=== PATIENT | female | born 1990 | race Caucasian/White ===

== ENCOUNTER 2017-09-13 10:18 | Outpatient (CLI) | payer OTHER | END 2017-09-13 10:19 | disposition home or self-care (01) | LOC: CTENTCT 10:18 | PROVIDERS: ATTEND Otolaryngology Plastic Surgery within the Head & Neck | DX: J32.9 Chronic sinusitis, unspecified (principal) | CPT/HCPCS: 70486 ==

== ENCOUNTER 2017-09-22 07:31 | Day surgery (SDC) | payer OTHER ==
[2017-09-21 14:03] VITALS: BMI 21.5
[2017-09-22] MEDS ORDERED: Midazolam HCl 2 mg/2 ml Vial ONE ×2 (08:43→10:45)
[2017-09-22 08:44] LABS: Hematocrit 43.4 % (36.0-47.0)
[2017-09-22] MEDS ORDERED: Fentanyl 100 MCG/2 ML VIAL ONE (08:56)
[2017-09-22] MEDS ORDERED: Lidocaine 1% w/Epinephrine 1:200K 30 ML VIAL ONE (08:58)
[2017-09-22] MEDS ORDERED: Oxymetazoline HCl 0.05% ( 15 ML ) ONE ×2 (08:58→09:18)
[2017-09-22] MEDS ORDERED: Meperidine HCl/PF 25 MG/ML VIAL ONE (10:18)
[2017-09-22] MEDS ORDERED: Promethazine HCl 25 MG/ML VIAL IM/IV PRN (10:37)
[2017-09-22] MEDS ORDERED: Non-Formulary Medication 1 EACH PO PRN (10:37)
[2017-09-22] MEDS ORDERED: Meperidine HCl/PF 25 MG/ML VIAL SLOW IVP PRN (10:37)
[2017-09-22] MEDS ORDERED: Ondansetron HCl/PF 4 MG/2 ML Vial IVP PRN (10:37)
[2017-09-22] MEDS ORDERED: Hydrocodone-Acetamin 15 ML UDCUP ONE (11:37)
[2017-09-22] MEDS ORDERED: Promethazine HCl 25 MG/ML VIAL ONE (11:44)
[2017-09-22] MEDS ORDERED: Ibuprofen 100 MG/5 ML UDCUP ONE (13:46)
[2017-09-22] MEDS ORDERED: Ketorolac Tromethamine 30 MG/ML VIAL ONE (16:07)
[2017-09-22] MEDS ORDERED: Dexamethasone 20 MG/5 ML VIAL ONE (16:07)
[2017-09-22] MEDS ORDERED: Ondansetron HCl/PF 4 MG/2 ML Vial ONE (16:07)
[2017-09-22] MEDS ORDERED: Lidocaine 1% PF 5 ML VIAL ONE (16:07)
[2017-09-22] MEDS ORDERED: Propofol 200 MG/20 ML VIAL ONE (16:07)
--- NOTE | 2017-09-23 14:03 | OP ---
PREOPERATIVE DIAGNOSES: 1. Chronic rhinosinusitis. 2. Bilateral inferior turbinate hypertrophy. 3. Nasal obstruction. 4. Chronic adenotonsillitis. 5. Adenotonsillar hypertrophy. POSTOPERATIVE DIAGNOSES: 1. Chronic rhinosinusitis. 2. Bilateral inferior turbinate hypertrophy. 3. Nasal obstruction. 4. Chronic adenotonsillitis. 5. Adenotonsillar hypertrophy. PROCEDURES: 1. Bilateral endoscopic sinus surgery, total ethmoidectomies. 2. Bilateral endoscopic sinus surgery, maxillary antrostomies. 3. Bilateral inferior turbinate submucosal resection. 4. Tonsillectomy and adenoidectomy. SURGEON: Deyvi Bustos M.D. ESTIMATED BLOOD LOSS: 50 mL COMPLICATIONS: None. ANESTHESIA: GETA. PROCEDURE IN DETAIL: After consent was obtained, the patient was identified, brought to the operatin g room, and placed on the operating table in the supine position. General endotracheal anesthesia an d intravenous access was obtained and we proceeded with positioning the patient for oropharyngeal guido eliane. Oropharyngeal exposure was obtained with a Yovany-Brian mouth gag after a head drape was placed and secured with a towel clip. The Yovany-Brian mouth gag was then suspended from the Martin tray and palatal elevation was achieved with a red rubber catheter. The right tonsil was addressed first. We used a curved Allis to grasp the tonsil and retract it medially as an anterior pillar incision was m florencio. The retrotonsillar fascial plane was then established and blunt dissection was performed with t he suction cautery. Blood vessels were anticipated, identified, and cauterized as they were encounte red. Ultimately, dissection was carried to the posterior tonsillar pillar mucosa which was incised h emostatically, as well as the base of tongue connection. The tonsil was then passed off as a specimen and bleeding points within the tonsillar bed were cauterized under direct visualization. We subsequ ently turned our attention to the contralateral side, where using a similar technique, a near identic al procedure was performed. Again, the tonsil was grasped and retracted medially with a curved Allis . The retrotonsillar fascial plane was established and while the anterior pillar was retracted media lly, the hemostatic blunt dissection of the tonsil with a suction cautery was performed with blood ve ssels anticipated, identified, and cauterized as they were encountered. Again, dissection continued to the base of tongue and posterior tonsillar pillar mucosa which was incised in a hemostatic fashion . The tonsillar beds were then carefully inspected and bleeding points were identified and cauterize d with a suction cautery. After this portion of the procedure, hemostasis was completely obtained. Under direct mirror visualization, we visualized the adenoid pad. Under direct mirror visualization, we removed the bulk of the adenoid tissue with the adenoid curette. We then packed the nasopharynx for an appropriate period of time with Rc-Synephrine saturated tonsillar sponges. After a period of observation, we removed the pack. Under indirect mirror visualization, we obtained hemostasis and v aporization of residual adenoid tissue with electrocautery. The patient's oral cavity was copiously irrigated with iced saline and subsequently suctioned. After completion of the procedure, the nasal cavity and oropharynx were irrigated and suctioned as were the gastric contents. The patient was the n awakened and transferred to the recovery room where the patient remained in stable condition prior to discharge to Day Stay. Following this, the patient was placed in the beach chair position and 1% lidocaine with 1:100,000 epinephrine was injected into the inferior turbinates and middle turbinates and lateral nasal wall bilaterally. Following this, the middle turbinates were gently medialized wit h a [place] elevator. The uncinate process was identified and was anteriorly fractured using a ball en ded probe. Following this, the uncinate process was removed bilaterally using the microdebrider and the upbiting Blakesley forceps. Following this, the natural maxillary ostia were identified with the ball-ended probe and were then gently widened using the straight Blakesley forceps and the microdebr ider. Following this, the ethmoidal bulla was identified and was punctured into the posterior ethmoi reina cells. The ethmoidal bulla was then used under microdebrider. Following this, the ground lamell a was identified and was punctured into the posterior ethmoidal cells. Working from posterior to ant erior, the ethmoidal cells were opened in a mucosal-sparing technique. Following this, the nasal cav ity was irrigated. MeroPacks were placed within the middle meatus. The patient tolerated the proced ure well. We then punctured on their anterior and inferior aspect with the submucosal microdebrider and submucosal resection was performed of the anterior and inferior portions of the inferior turbinat es bilaterally. The patient tolerated the procedure well.
== END 2017-09-22 13:50 | disposition home or self-care (01) ==
LOC: SDC 07:31
PROVIDERS: ATTEND Otolaryngology Plastic Surgery within the Head & Neck
PROC: 099R8ZZ Drainage of Left Maxillary Sinus, Via Natural or Artificial Opening Endoscopic (ICD-10-PCS; principal; 2017-09-22)
PROC: 09TU8ZZ Resection of Right Ethmoid Sinus, Via Natural or Artificial Opening Endoscopic (ICD-10-PCS; principal; 2017-09-22)
PROC: 09BL8ZZ Excision of Nasal Turbinate, Via Natural or Artificial Opening Endoscopic (ICD-10-PCS; principal; 2017-09-22)
PROC: 09TV8ZZ Resection of Left Ethmoid Sinus, Via Natural or Artificial Opening Endoscopic (ICD-10-PCS; principal; 2017-09-22)
PROC: 099Q8ZZ Drainage of Right Maxillary Sinus, Via Natural or Artificial Opening Endoscopic (ICD-10-PCS; principal; 2017-09-22)
PROC: 0CTPXZZ Resection of Tonsils, External Approach (ICD-10-PCS; principal; 2017-09-22)
PROC: 0CTQ0ZZ Resection of Adenoids, Open Approach (ICD-10-PCS; principal; 2017-09-22)
DX: J32.9 Chronic sinusitis, unspecified (principal); J34.3 Hypertrophy of nasal turbinates; J35.3 Hypertrophy of tonsils with hypertrophy of adenoids; A42.89 Other forms of actinomycosis; G43.909 Migraine, unspecified, not intractable, without status migrainosus; F41.9 Anxiety disorder, unspecified; F32.9 Major depressive disorder, single episode, unspecified; Z88.1 Allergy status to other antibiotic agents; Z88.0 Allergy status to penicillin; Z91.013 Allergy to seafood; Z88.8 Allergy status to other drugs, medicaments and biological substances
CPT/HCPCS: 84703; 85014; 88304; 96374; J1100; J1885; J2001; J2175; J2250; J2405; J2550; J2704; J3010

== ENCOUNTER 2018-01-12 10:39 | Outpatient (CLI) | payer MEDICAID ==
--- NOTE | 2018-01-12 13:48 | ULT ---
COMPLETE ABDOMEN ULTRASOUND: INDICATIONS: Mid epigastric abdominal pain. FINDINGS: The partially visualized abdominal aorta is within normal limits. The distal portion is obscured by overlying bowel gas. The visualized liver and spleen are unremarkable. The spleen measures 9.5 cm. A small amount of sludge is present within the gallbladder. No sonographic Bray sign is reported. The common bile duct measures 2.6 mm. The visualized aspects of the pancreas are unremarkable. The right kidney measures 10.2 x 3.2 x 4.4 cm. The left kidney measures 11.6 x 5 x 4.9 cm. There is a 5.6 cm calcification seen at the corticomedullary junction, suspicious for a small stone. IMPRESSION: 1. Gallbladder sludge. 2. Left nephrolithiasis. POS: RICKIE
== END 2018-01-12 10:40 | disposition home or self-care (01) ==
LOC: ULT 10:39
PROVIDERS: ATTEND Family Medicine
DX: R10.13 Epigastric pain (principal); K82.8 Other specified diseases of gallbladder; N20.0 Calculus of kidney
CPT/HCPCS: 76700

== ENCOUNTER 2018-11-21 09:29 | Outpatient (CLI) | payer OTHER ==
--- NOTE | 2018-11-21 10:15 | ULT ---
RIGHT BREAST ULTRASOUND: Date: 11/21/18 HISTORY: Palpable mass in lower outer aspect of the right breast. Bilateral breast pain. TECHNIQUE: Multiplanar Vieira scale and color Doppler images were obtained in a targeted ultrasound of the right breast. FINDINGS: Normal appearing breast parenchyma is seen in the right breast. No suspicious mass or shadowing is se en. No cyst is identified. IMPRESSION: BIRADS Category 1 - negative. Annual screening mammography is recommended at the age of 40. POS: DIOGO
== END 2018-11-21 09:30 | disposition home or self-care (01) ==
LOC: BICULT 09:29
PROVIDERS: ATTEND Physician Assistant
DX: N63.10 Unspecified lump in the right breast, unspecified quadrant (principal)

== ENCOUNTER 2018-12-05 08:49 | Outpatient (CLI) | payer OTHER ==
--- NOTE | 2018-12-05 11:04 | ULT ---
ULTRASOUND PELVIS WITH DOPPLER: HISTORY: Abnormal bleeding. COMPARISON: None. FINDINGS: Real-time, gamez scale, color Doppler, and spectral analysis of the pelvis was performed. The uterus measures 9.8 x 5.9 x 4.1 cm. Endometrial thickness is 7 mm. The right kidney measures 3. 3 x 3.6 x 2.7 cm with a 2 cm cyst with adequate vascular flow. The left ovary measures 3.9 x 3 x 2.7 cm with adequate vascular flow. No free fluid in the pelvis. Intrauterine device is seen within the endometrial cavity. IMPRESSION: Intrauterine device seen within the endometrial cavity. Normal exam. POS: TPC
== END 2018-12-05 08:50 | disposition home or self-care (01) ==
LOC: BICULT 08:49
PROVIDERS: ATTEND Student in an Organized Health Care Education/Training Program
DX: N93.9 Abnormal uterine and vaginal bleeding, unspecified (principal); Z97.5 Presence of (intrauterine) contraceptive device
CPT/HCPCS: 76856; 93976

== ENCOUNTER 2019-05-04 12:39 | Outpatient (CLI) | payer OTHER ==
--- NOTE | 2019-05-04 13:41 | RAD ---
XR Elbow Rt 2 View HISTORY: Right elbow pain, recent fall COMPARISON: 04/28/2019 FINDINGS: No fracture or dislocation is identified.
== END 2019-05-04 12:40 | disposition home or self-care (01) ==
LOC: RAD 12:39
PROVIDERS: ATTEND Physician Assistant
DX: M25.521 Pain in right elbow (principal)

== ENCOUNTER 2019-08-06 14:51 | Emergency (ER) | payer OTHER ==
--- NOTE | 2019-08-06 15:56 | RAD ---
Radiograph pelvis one view: DATE: 08/06/2019 HISTORY: 29-year-old female with posterior nontraumatic pelvic pain. FINDINGS: Mild sclerosis without large osteophytes of bilateral SI joints. Bilateral hip joint spaces are maint ained. No subcapital or acetabular osteophytes. Femoral head contours are maintained. Pelvic ring is intact. No displaced fracture identified. There is an IUD at midline. IMPRESSION: 1. Intrauterine device. 2. No definitive major pathology identified.
[2019-08-06 15:59] LABS: #Eosinphils 0.1 thou/uL (0.0-0.7); #Lymphocytes 0.9 thou/uL (1.20-3.40); #Monocytes 0.4 thou/uL (0.11-0.59); #Neutrophils 6.1 thou/uL (1.40-6.50); %Basophils 0.5 % (0.0-1.0); %Eosinophils 1.6 % (0.0-10.0); %Lymphocytes 11.3 % (21.0-51.0); %Monocytes 4.8 % (0.0-10.0); %Neutrophils 81.7 % (42.0-75.0); Hemoglobin 12.8 g/dL (12.0-16.0); Mean Corpuscular HGB CONC 32.5 g/dL (32.0-36.0); Mean Corpuscular Hemoglobin 29.6 pg (27.0-31.0); Mean Corpuscular Volume 91.1 fL (78.0-98.0); Mean Platelet Volume 8.5 fL (7.4-10.4); Platelet Count 164 thou/uL (130-400); RBC Distribution Width 11.9 % (11.5-14.5); Red Blood Cell (RBC) Count 4.32 mill/uL (4.20-5.40); White Blood Cell (WBC) Count 7.5 thou/uL (4.8-10.8)
[2019-08-06] MEDS ORDERED: HYDROcodone/Acetaminophen 5/325 mg Tablet ONE (16:01)
== END 2019-08-06 17:40 | disposition home or self-care (01) ==
LOC: SCSER 14:51
DX: M53.3 Sacrococcygeal disorders, not elsewhere classified (principal); G89.29 Other chronic pain; F41.9 Anxiety disorder, unspecified; F32.9 Major depressive disorder, single episode, unspecified; Z79.899 Other long term (current) drug therapy
CPT/HCPCS: 36415; 72170; 85025; 85652

== ENCOUNTER 2020-01-01 08:16 | Outpatient (CLI) | payer OTHER ==
--- NOTE | 2020-01-01 09:15 | MRI ---
MRI lumbar spine noncontrast HISTORY: Low back pain with left leg radiculopathy. FINDINGS: The conus medullaris has normal appearance. Vertebral body heights and alignment are mainta ined. Disc hydration is within normal limits. At each level, the central canal and neural foramina are patent. Mild osteophytosis and facet fluid a t each level of the lumbar spine. At the L5-S1 level, a very small focus of increased T2 signal within the posterior disc annulus on th e sagittal images has the appearance of an annular fissure. IMPRESSION: Minimal degenerative changes. Tiny posterior annular fissure at the L5-S1 disc. No focal disc herniation or nerve root compression.
== END 2020-01-01 08:17 | disposition home or self-care (01) ==
LOC: BICMRI 08:16
PROVIDERS: ATTEND Specialist
DX: M51.17 Intervertebral disc disorders with radiculopathy, lumbosacral region (principal); M53.3 Sacrococcygeal disorders, not elsewhere classified; M47.26 Other spondylosis with radiculopathy, lumbar region; Z98.1 Arthrodesis status
CPT/HCPCS: 72148

== ENCOUNTER 2020-12-25 08:38 | Emergency (ER) | payer OTHER ==
[2020-12-25 09:59] LABS: #Basophils 0.1 thou/uL (0.0-0.2); #Eosinphils 0.5 thou/uL (0.0-0.7); #Lymphocytes 1.2 thou/uL (1.20-3.40); #Monocytes 0.3 thou/uL (0.11-0.59); #Neutrophils 1.6 thou/uL (1.40-6.50); %Basophils 1.6 % (0.0-1.0); %Eosinophils 12.6 % (0.0-10.0); %Lymphocytes 33.2 % (21.0-51.0); %Monocytes 8.7 % (0.0-10.0); Hemoglobin 12.7 g/dL (12.0-16.0); Mean Corpuscular Hemoglobin 31.3 pg (27.0-31.0); Mean Corpuscular Volume 92.2 fL (78.0-98.0); Mean Platelet Volume 8.3 fL (7.4-10.4); Platelet Count 176 thou/uL (130-400); RBC Distribution Width 11.2 % (11.5-14.5); Red Blood Cell (RBC) Count 4.05 mill/uL (4.20-5.40); White Blood Cell (WBC) Count 3.7 thou/uL (4.8-10.8)
[2020-12-25 10:03] LABS: BHCG - Serum Negative (NEGATIVE); Pregs Control Background? CLEAR/WHITE (CLR/WHITE); Pregs Control Bar Appear? YES (CONTROL BAR)
[2020-12-25] MEDS ORDERED: Ondansetron ODT 4 MG TAB ONE (10:06)
[2020-12-25] MEDS ORDERED: Lidocaine Viscous Sol 2% 15 ml UD Cup ONE (10:06)
[2020-12-25] MEDS ORDERED: Mag-Al 1200 mg/1200 mg/30 ML UDCUP ONE (10:06)
[2020-12-25 10:16] LABS: ALT (SGPT) 9 U/L (8-55); AST (SGOT) 13 U/L (5-34); Albumin 4.4 g/dL (3.5-5.0); Alkaline Phosphatase 49 U/L (40-110); Anion Gap 15 mmol/L (10-20); BUN (Urea Nitrogen) 16 mg/dL (7.0-18.7); Bilirubin, Total 1.6 mg/dL (0.2-1.2); Calc. Creatinine Clearance 0 mL/min (70-130); Calcium 8.8 mg/dL (7.8-10.44); Carbon Dioxide 25 mmol/L (22-29); Chloride 102 mmol/L (98-107); Globulin 2.9 g/dL (2.4-3.5); Glucose 86 mg/dL (70-105); Lipase 41 U/L (8-78); Potassium 3.5 mmol/L (3.5-5.1); Protein, Total 7.3 g/dL (6.0-8.3); Sodium 138 mmol/L (136-145)
[2020-12-25 10:27] LABS: Bilirubin Negative (Negative); Blood, Urine Negative (Negative); Clarity Clear (Clear); Glucose, Urine (Dipstick) Normal (Negative); Ketone, Urine 20 mg/dL (Negative); Leukocyte 75 Leu/uL (Negative); Nitrite Negative (Negative); Protein, Urine (Dipstick) 100 mg/dL (Neg-Trace); RBC/HPF 0-3 HPF (0-3); Specific Gravity, Urine 1.022 (1.002-1.036); Squamous Epithelial 0-3 HPF (0-3); Urobilinogen Normal mg/dL (Less than 2); WBC/HPF 0-3 HPF (0-3); pH, Urine 8.5 (5.0-9.0)
[2020-12-25 10:33] LABS: Bacteria/HPF 1+ HPF (None Seen)
== END 2020-12-25 12:40 | disposition home or self-care (01) ==
LOC: ERS 08:38
DX: R10.13 Epigastric pain (principal)
CPT/HCPCS: 36415; 80053; 81003; 81015; 83690; 84703; 85025; 96372; 99284; J0500; Q0162

== ENCOUNTER 2020-12-26 10:46 | Inpatient (IN) | payer OTHER ==
[2020-12-26 11:28] LABS: Bilirubin Negative (Negative); Blood, Urine Negative (Negative); Clarity Clear (Clear); Glucose, Urine (Dipstick) Normal (Negative); Ketone, Urine 40 mg/dL (Negative); Leukocyte 250 Leu/uL (Negative); Nitrite Negative (Negative); Protein, Urine (Dipstick) 30 mg/dL (Neg-Trace); RBC/HPF 0-3 HPF (0-3); Specific Gravity, Urine 1.029 (1.002-1.036); Urobilinogen Normal mg/dL (Less than 2)
[2020-12-26 11:30] LABS: Bacteria/HPF 1+ HPF (None Seen)
[2020-12-26] MEDS ORDERED: Pantoprazole 40 MG VIAL ONE (11:34)
[2020-12-26] MEDS ORDERED: Morphine 4 MG/ML VIAL ONE ×2 (11:34→14:25)
[2020-12-26] MEDS ORDERED: Ondansetron PF 4 MG/2 ML Vial ONE (11:34)
[2020-12-26 11:40] LABS: #Eosinphils 0.4 thou/uL (0.0-0.7); #Lymphocytes 1.6 thou/uL (1.20-3.40); #Monocytes 0.3 thou/uL (0.11-0.59); #Neutrophils 1.6 thou/uL (1.40-6.50); %Basophils 0.8 % (0.0-1.0); %Eosinophils 9.4 % (0.0-10.0); %Lymphocytes 41.8 % (21.0-51.0); %Monocytes 6.9 % (0.0-10.0); %Neutrophils 41.1 % (42.0-75.0); Mean Corpuscular HGB CONC 33.8 g/dL (32.0-36.0); Mean Corpuscular Hemoglobin 31.2 pg (27.0-31.0); Mean Corpuscular Volume 92.2 fL (78.0-98.0); Mean Platelet Volume 8.5 fL (7.4-10.4); Platelet Count 203 thou/uL (130-400); RBC Distribution Width 11.2 % (11.5-14.5); Red Blood Cell (RBC) Count 4.16 mill/uL (4.20-5.40); White Blood Cell (WBC) Count 3.9 thou/uL (4.8-10.8)
[2020-12-26 11:48] LABS: BHCG - Serum Negative (NEGATIVE); Pregs Control Background? CLEAR/WHITE (CLR/WHITE); Pregs Control Bar Appear? YES (CONTROL BAR)
[2020-12-26 12:15] LABS: ALT (SGPT) 8 U/L (8-55); AST (SGOT) 19 U/L (5-34); Albumin 4.6 g/dL (3.5-5.0); Alkaline Phosphatase 48 U/L (40-110); Anion Gap 14 mmol/L (10-20); BUN (Urea Nitrogen) 14 mg/dL (7.0-18.7); Bilirubin, Total 1.3 mg/dL (0.2-1.2); Calc. Creatinine Clearance 0 mL/min (70-130); Calcium 9.2 mg/dL (7.8-10.44); Carbon Dioxide 25 mmol/L (22-29); Chloride 103 mmol/L (98-107); Globulin 3.4 g/dL (2.4-3.5); Glucose 95 mg/dL (70-105); Lipase 38 U/L (8-78); Sodium 138 mmol/L (136-145)
[2020-12-26] MEDS ORDERED: Acetaminophen 650 MG Suppository PR PRN (14:10)
[2020-12-26] MEDS ORDERED: Ondansetron ODT 4 MG TAB PO PRN (14:10)
[2020-12-26] MEDS ORDERED: Ondansetron PF 4 MG/2 ML Vial IVP PRN (14:10)
[2020-12-26] MEDS ORDERED: Metoclopramide 10 MG/10 ML UDCUP ONE (14:25)
[2020-12-26] MEDS ORDERED: Metoclopramide HCl 10 MG/2 ML VIAL ONE (14:25)
[2020-12-26] MEDS: Sodium Chloride 0.9% 1,000 ML IV SCH (15:19)
[2020-12-26 15:47] VITALS: BMI 21.2
[2020-12-26] MEDS: Acetaminophen 325 MG TAB PO PRN ×2 (16:42→21:46)
[2020-12-26] MEDS ORDERED: Morphine 2 MG/ML VIAL SLOW IVP PRN (18:25)
[2020-12-26] MEDS: Metoclopramide HCl 10 MG/2 ML VIAL IVP SCH (21:39)
[2020-12-26] MEDS: Pantoprazole 40 MG VIAL IVP SCH (21:40)
[2020-12-26 23:39] LABS: SARS-CoV-2 PCR by NAA Not Detected (NotDetected)
[2020-12-27] MEDS: Sodium Chloride 0.9% 1,000 ML IV SCH ×2 (05:22→16:02)
[2020-12-27 06:04] LABS: #Eosinphils 0.2 thou/uL (0.0-0.7); #Lymphocytes 1.2 thou/uL (1.20-3.40); #Monocytes 0.2 thou/uL (0.11-0.59); %Basophils 0.5 % (0.0-1.0); %Eosinophils 7.7 % (0.0-10.0); %Lymphocytes 45.5 % (21.0-51.0); %Monocytes 8.3 % (0.0-10.0); Mean Corpuscular Hemoglobin 31.6 pg (27.0-31.0); Mean Corpuscular Volume 92.8 fL (78.0-98.0); Mean Platelet Volume 8.5 fL (7.4-10.4); Platelet Count 154 thou/uL (130-400); RBC Distribution Width 11.3 % (11.5-14.5); Red Blood Cell (RBC) Count 3.49 mill/uL (4.20-5.40); White Blood Cell (WBC) Count 2.7 thou/uL (4.8-10.8)
[2020-12-27] MEDS: Metoclopramide HCl 10 MG/2 ML VIAL IVP SCH ×3 (06:24→21:13)
[2020-12-27] MEDS: Acetaminophen 325 MG TAB PO PRN ×3 (06:28→21:12)
[2020-12-27 06:30] LABS: Anion Gap 13 mmol/L (10-20); BUN (Urea Nitrogen) 8 mg/dL (7.0-18.7); Calc. Creatinine Clearance 106 mL/min (70-130); Calcium 8.3 mg/dL (7.8-10.44); Carbon Dioxide 20 mmol/L (22-29); Chloride 110 mmol/L (98-107); Glucose 71 mg/dL (70-105); Potassium 3.6 mmol/L (3.5-5.1); Sodium 139 mmol/L (136-145)
[2020-12-27] MEDS: Pantoprazole 40 MG VIAL IVP SCH ×2 (08:04→21:14)
[2020-12-27] MEDS ORDERED: PROPOFOL 200 MG/20 ML VIAL ONE (11:05)
[2020-12-27] MEDS ORDERED: Lidocaine 1% PF 5 ML VIAL ONE (11:05)
[2020-12-27] MEDS ORDERED: Iopamidol-370 76% 500 ML 1 ML ONE (11:19)
[2020-12-27] MEDS ORDERED: Ondansetron HCl/PF 4 MG/2 ML Vial IVP PRN (11:21)
[2020-12-27] MEDS ORDERED: Promethazine HCl 25 MG/ML VIAL SLOW IVP PRN (11:21)
[2020-12-27] MEDS ORDERED: Promethazine HCl 25 MG/ML VIAL IM PRN (11:21)
[2020-12-28] MEDS: Acetaminophen 325 MG TAB PO PRN ×4 (04:13→23:18)
[2020-12-28] MEDS: Sodium Chloride 0.9% 1,000 ML IV SCH ×2 (04:13→20:48)
[2020-12-28] MEDS: Metoclopramide HCl 10 MG/2 ML VIAL IVP SCH (06:30)
[2020-12-28 07:03] LABS: #Eosinphils 0.2 thou/uL (0.0-0.7); #Lymphocytes 1.1 thou/uL (1.20-3.40); #Monocytes 0.2 thou/uL (0.11-0.59); #Neutrophils 1.2 thou/uL (1.40-6.50); %Basophils 0.8 % (0.0-1.0); %Eosinophils 8.9 % (0.0-10.0); %Lymphocytes 40.2 % (21.0-51.0); %Monocytes 7.5 % (0.0-10.0); %Neutrophils 42.4 % (42.0-75.0); Hemoglobin 11.8 g/dL (12.0-16.0); Mean Corpuscular Hemoglobin 31.5 pg (27.0-31.0); Mean Corpuscular Volume 92.7 fL (78.0-98.0); Mean Platelet Volume 8.6 fL (7.4-10.4); Platelet Count 146 thou/uL (130-400); Red Blood Cell (RBC) Count 3.74 mill/uL (4.20-5.40); White Blood Cell (WBC) Count 2.7 thou/uL (4.8-10.8)
[2020-12-28 07:19] LABS: Anion Gap 16 mmol/L (10-20); BUN (Urea Nitrogen) 5 mg/dL (7.0-18.7); Calc. Creatinine Clearance 105 mL/min (70-130); Calcium 8.4 mg/dL (7.8-10.44); Carbon Dioxide 18 mmol/L (22-29); Chloride 109 mmol/L (98-107); Glucose 68 mg/dL (70-105); Potassium 3.6 mmol/L (3.5-5.1); Sodium 139 mmol/L (136-145)
[2020-12-28] MEDS: Pantoprazole 40 MG VIAL IVP SCH ×2 (08:42→20:49)
[2020-12-28] MEDS ORDERED: Promethazine HCl 12.5 MG SUPP PR PRN (12:49)
[2020-12-28] MEDS: Hyoscyamine Sulfate SL 0.125 mg Tablet SL PRN ×2 (17:54→23:17)
[2020-12-29 06:49] LABS: #Eosinphils 0.3 thou/uL (0.0-0.7); #Lymphocytes 1.3 thou/uL (1.20-3.40); #Monocytes 0.2 thou/uL (0.11-0.59); #Neutrophils 0.9 thou/uL (1.40-6.50); %Basophils 0.7 % (0.0-1.0); %Eosinophils 9.7 % (0.0-10.0); %Lymphocytes 48.4 % (21.0-51.0); %Monocytes 7.7 % (0.0-10.0); %Neutrophils 33.5 % (42.0-75.0); Hemoglobin 12.5 g/dL (12.0-16.0); Mean Corpuscular HGB CONC 33.8 g/dL (32.0-36.0); Mean Corpuscular Hemoglobin 31.2 pg (27.0-31.0); Mean Corpuscular Volume 92.3 fL (78.0-98.0); Mean Platelet Volume 8.8 fL (7.4-10.4); Platelet Count 156 thou/uL (130-400); RBC Distribution Width 11.2 % (11.5-14.5); Red Blood Cell (RBC) Count 4.02 mill/uL (4.20-5.40); White Blood Cell (WBC) Count 2.6 thou/uL (4.8-10.8)
[2020-12-29 07:12] LABS: Anion Gap 12 mmol/L (10-20); BUN (Urea Nitrogen) 6 mg/dL (7.0-18.7); Calc. Creatinine Clearance 103 mL/min (70-130); Calcium 8.5 mg/dL (7.8-10.44); Carbon Dioxide 22 mmol/L (22-29); Chloride 108 mmol/L (98-107); Glucose 92 mg/dL (70-105); Potassium 3.4 mmol/L (3.5-5.1); Sodium 139 mmol/L (136-145)
[2020-12-29 08:55] VITALS: BP 114/72; TEMP 97.9
[2020-12-29] MEDS: Pantoprazole 40 MG VIAL IVP SCH (09:19)
[2020-12-29] MEDS: Sodium Chloride 0.9% 1,000 ML IV SCH (09:21)
[2020-12-29] MEDS: Acetaminophen 325 MG TAB PO PRN (09:30)
[2020-12-29] MEDS: Hyoscyamine Sulfate SL 0.125 mg Tablet SL PRN (12:23)
== END 2020-12-29 16:15 | disposition home or self-care (01) | DRG 392 ==
LOC: ERS 10:46 → T4-B 13:24
PROVIDERS: ADMIT Internal Medicine; ATTEND Internal Medicine
PROC: 0DJ08ZZ Inspection of Upper Intestinal Tract, Via Natural or Artificial Opening Endoscopic (ICD-10-PCS; principal; 2020-12-27)
DX: K30 Functional dyspepsia (principal); N20.0 Calculus of kidney; Z20.822 Contact with and (suspected) exposure to COVID-19; M51.27 Other intervertebral disc displacement, lumbosacral region; F41.9 Anxiety disorder, unspecified; F32.9 Major depressive disorder, single episode, unspecified; G89.29 Other chronic pain; Z91.013 Allergy to seafood; Z88.0 Allergy status to penicillin; Z88.1 Allergy status to other antibiotic agents; Z79.899 Other long term (current) drug therapy
CPT/HCPCS: 36415; 74177; 76705; 80048; 80053; 81003; 81015; 83690; 84703; 85025; 87086; 87635; 96374; 96375; 96376; C9113; J2270; J2405; J2704; J2765; Q9967; U0003; U0005

== ENCOUNTER 2021-01-20 12:31 | Outpatient (CLI) | payer OTHER | END 2021-01-20 12:32 | disposition home or self-care (01) | LOC: NM 12:31 | PROVIDERS: ATTEND Physician Assistant Medical | DX: R10.13 Epigastric pain (principal); R11.2 Nausea with vomiting, unspecified | CPT/HCPCS: 78227; A9537 ==

== ENCOUNTER 2021-02-11 17:14 | Emergency (ER) | payer OTHER | END 2021-02-11 19:17 | disposition home or self-care (01) | LOC: ERS 17:14 | DX: M54.5 Low back pain (principal) | CPT/HCPCS: 99283 ==

== ENCOUNTER 2021-07-13 13:49 | Emergency (ER) | payer OTHER ==
[2021-07-13 23:32] LABS: SARS-CoV-2 PCR by NAA Not Detected (NotDetected)
== END 2021-07-13 15:26 | disposition home or self-care (01) ==
LOC: ERS 13:49
DX: J02.9 Acute pharyngitis, unspecified (principal); Z20.822 Contact with and (suspected) exposure to COVID-19
CPT/HCPCS: 87081; 87430; 99283; U0003; U0005

== ENCOUNTER 2023-08-09 08:14 | Emergency (ER) | payer OTHER ==
[2023-08-09 08:54] LABS: #Monocytes 0.4 thou/uL (0.11-0.59); #Neutrophils 2.4 thou/uL (1.40-6.50); %Basophils 0.3 % (0.0-1.0); %Eosinophils 0.3 % (0.0-10.0); %Lymphocytes 15.7 % (21.0-51.0); %Monocytes 12.2 % (0.0-10.0); %Neutrophils 70.9 % (42.0-75.0); Hematocrit 41.5 % (36.0-47.0); Hemoglobin 13.6 g/dL (12.0-16.0); Mean Corpuscular HGB CONC 32.8 g/dL (32.0-36.0); Mean Corpuscular Hemoglobin 31.1 pg (27.0-31.0); Mean Corpuscular Volume 94.7 fl (78.0-98.0); Mean Platelet Volume 10.9 fL (7.4-10.4); Platelet Count 138 10x3/uL (130-400); RBC Distribution Width 11.9 % (11.5-14.5); Red Blood Cell (RBC) Count 4.38 mill/uL (4.20-5.40); White Blood Cell (WBC) Count 3.4 10x3/uL (4.8-10.8)
[2023-08-09 09:26] LABS: ALT (SGPT) 12 U/L (8-55); AST (SGOT) 16 U/L (5-34); Albumin 5.4 g/dL (3.5-5.0); Alkaline Phosphatase 56 U/L (40-110); Anion Gap 16 mmol/L (10-20); BUN (Urea Nitrogen) 14 mg/dL (7.0-18.7); Bilirubin, Total 1.5 mg/dL (0.2-1.2); Calc. Creatinine Clearance 0 mL/min (70-130); Calcium 9.4 mg/dL (7.8-10.44); Carbon Dioxide 19 mmol/L (22-29); Chloride 105 mmol/L (98-107); Estimated GFR 107; Globulin 2.8 g/dL (2.4-3.5); Glucose 70 mg/dL (70-105); Lipase 22 U/L (8-78); Potassium 4.2 mmol/L (3.5-5.1); Protein, Total 8.2 g/dL (6.0-8.3); Sodium 136 mmol/L (136-145)
[2023-08-09 09:27] LABS: BHCG - Serum Negative (NEGATIVE); Pregs Control Background? CLEAR/WHITE (CLR/WHITE); Pregs Control Bar Appear? YES (CONTROL BAR)
[2023-08-09] MEDS ORDERED: Iopamidol-370 76% 500 ML MDV (1 ML CHARGE) ONE (09:27)
[2023-08-09] MEDS ORDERED: Dicyclomine 20 MG TAB ONE (10:32)
[2023-08-09] MEDS ORDERED: Famotidine/PF 20 mg/2ml Vial ONE (10:33)
[2023-08-09] MEDS ORDERED: Pantoprazole 40 MG VIAL ONE (10:33)
[2023-08-09] MEDS ORDERED: Ondansetron PF 4 MG/2 ML Vial ONE (10:33)
[2023-08-09] MEDS ORDERED: Ketorolac Tromethamine 30 MG/ML VIAL ONE (10:34)
[2023-08-09 12:09] LABS: Bacteria/HPF 4+ HPF (None Seen); Bilirubin Negative (Negative); Blood, Urine Negative (Negative); CAUTI Indications for Culture Pelvic or flank pain; Clarity Turbid (Clear); Glucose, Urine (Dipstick) 30 mg/dL (Negative); Ketone, Urine 80 mg/dL (Negative); Leukocyte 500 Leu/uL (Negative); Nitrite Negative (Negative); Protein, Urine (Dipstick) 70 mg/dL (Neg-Trace); RBC/HPF 0-3 HPF (0-3); Specific Gravity, Urine 1.035 (1.002-1.036); Urobilinogen Normal mg/dL (Less than 2); WBC/HPF 21-50 HPF (0-3)
[2023-08-09 12:16] LABS: Urine Culture Reflex Yes Yes
[2023-08-09 13:04] LABS: Pregnancy Test - Urine (BHCG) Negative (Negative); Pregu Control Background? CLEAR/WHITE (CLR/WHITE); Pregu Control Bar Appear? YES (CONTROL BAR); Specific Gravity 1.035 (1.002-1.036)
== END 2023-08-09 13:13 | disposition home or self-care (01) ==
LOC: ERS 08:14
DX: R10.13 Epigastric pain (principal); N83.202 Unspecified ovarian cyst, left side; D72.819 Decreased white blood cell count, unspecified; R94.5 Abnormal results of liver function studies
CPT/HCPCS: 36415; 74177; 80053; 81001; 81025; 83690; 84703; 85025; 87086; 96374; 96375; C9113; J1885; J2405; Q9967; S0028

== ENCOUNTER 2024-08-26 16:57 | Emergency (ER) | payer OTHER ==
[2024-08-26] MEDS ORDERED: Lidocaine 4% Patch ONE (18:33)
[2024-08-26] MEDS ORDERED: Ketorolac Tromethamine 30 MG (1 mL) VIAL ONE (18:33)
== END 2024-08-26 18:46 | disposition home or self-care (01) ==
LOC: ERS 16:57
DX: M54.32 Sciatica, left side (principal); G89.29 Other chronic pain
CPT/HCPCS: 96372; 99283; J1885

== ENCOUNTER 2024-11-16 12:05 | Emergency (ER) | payer OTHER | END 2024-11-16 13:58 | disposition home or self-care (01) | LOC: ERS 12:05 | DX: J11.1 Influenza due to unidentified influenza virus with other respiratory manifestations (principal) | CPT/HCPCS: 87428; 99283 ==

== ENCOUNTER 2025-09-27 18:38 | Emergency (ER) | payer OTHER ==
[2025-09-27] MEDS ORDERED: predniSONE 20 MG TAB ONE (20:13)
== END 2025-09-27 20:55 | disposition home or self-care (01) ==
LOC: ERS 18:38
DX: J18.9 Pneumonia, unspecified organism (principal)
CPT/HCPCS: 71045; 87428; J7512